=== PATIENT | female | born 1990 | race Caucasian/White ===

== ENCOUNTER 2017-09-13 05:20 | Inpatient (IN) | payer OTHER, MEDICAID ==
[2017-09-13] MEDS ORDERED: AMPICILLIN 2 GM/NS (PMX) 100 ML (05:39)
[2017-09-13] MEDS: LACTATED RINGER'S 1,000 ML IV ×2 (05:51→13:35)
[2017-09-13] MEDS: AMPICILLIN 2 GM/NS (PMX) 100 ML IV (05:51)
[2017-09-13] MEDS ORDERED: OXYTOCIN 30 UNITS/LR 500 ML IV ×3 (06:00→07:30)
[2017-09-13] MEDS ORDERED: LIDOCAINE 1% (MPF) 30 ML INJ INJ (06:00)
[2017-09-13] MEDS ORDERED: IBUPROFEN 600 MG TAB PO (06:00)
[2017-09-13] MEDS ORDERED: BUTORPHANOL 2 MG INJ IV (06:00)
[2017-09-13] MEDS ORDERED: MISOPROSTOL 200 MCG TAB PR ×2 (06:00→07:30)
[2017-09-13] MEDS ORDERED: CARBOPROST 250 MCG INJ IM ×2 (06:00→07:30)
[2017-09-13] MEDS ORDERED: METHYLERGONOVINE 0.2 MG INJ IM ×2 (06:00→07:30)
[2017-09-13 06:09] LABS: ADD MAN DIFF? NO
[2017-09-13 06:16] LABS: BASOPHILS % 0.2 % (0.0-2.0); EOSINOPHILS % 0.1 % (0.0-7.0); HEMATOCRIT 36.6 % (37.0-47.0); HEMOGLOBIN 12.5 g/dl (12.0-16.0); LYMPHOCYTES # 2.9 10^3/ul (0.8-2.9); LYMPHOCYTES % 35.3 % (15.0-51.0); MEAN CORPUSCULAR HEMOGLOBIN 30.1 pg (29.0-33.0); MEAN CORPUSCULAR HGB CONC 34.2 g/dl (32.0-37.0); MEAN CORPUSCULAR VOLUME 88.2 fl (82.0-101.0); MONOCYTE # 0.6 10^3/ul (0.3-0.9); NEUTROPHIL # 4.7 10^3/ul (1.6-7.5); NEUTROPHILS % 56.9 % (39.0-77.0); PLATELET COUNT 184 10^3/UL (140-415); RED BLOOD COUNT 4.15 10^6/ul (4.20-5.40); RED CELL DISTRIBUTION WIDTH 13.1 % (11.5-14.5)
[2017-09-13 06:16] LABS: WHITE BLOOD COUNT 8.3 10^3/ul (4.8-10.8)
[2017-09-13] MEDS: OXYTOCIN 30 UNITS/LR 500 ML IV ×3 (06:32→10:49)
[2017-09-13 06:33] LABS: INR 0.89; PROTIME 12.1 Sec (11.9-14.9); PT RATIO 0.9
[2017-09-13 06:34] LABS: PARTIAL THROMBOPLASTIN TIME 30.3 Sec (25.0-35.0)
[2017-09-13 07:10] LABS: HEPATITIS B SURFACE ANTIGEN NEGATIVE (NEGATIVE)
[2017-09-13] MEDS ORDERED: WITCH HAZEL/GLYCERIN PAD PR (07:30)
[2017-09-13] MEDS ORDERED: LANOLIN 7 GM TUBE TOP (07:30)
[2017-09-13] MEDS ORDERED: DIBUCAINE 1% 30 GM OINT PR (07:30)
[2017-09-13] MEDS: IBUPROFEN 600 MG TAB PO ×4 (07:30→23:43)
[2017-09-13] MEDS ORDERED: HYDROCODONE/APAP (5/325) TAB PO (07:30)
[2017-09-13] MEDS ORDERED: OXYCODONE/ASPIRIN (4.88/325) TAB PO ×2 (07:30)
[2017-09-13] MEDS ORDERED: ONDANSETRON 4 MG INJ IV (07:30)
[2017-09-13] MEDS ORDERED: ACETAMINOPHEN 325 MG TAB PO (07:30)
[2017-09-13] MEDS ORDERED: BENZOCAINE 20% 56 ML SPRAY TOP (07:30)
[2017-09-13] MEDS: HYDROCODONE/APAP (5/325) TAB PO (07:54)
[2017-09-13] MEDS: AMPICILLIN 1 GM/NS (PMX) 50 ML IV ×2 (10:00→14:00)
[2017-09-13] MEDS: SENNA/DOCUSATE NA (8.6MG/50MG) TAB PO ×2 (10:49→23:43)
[2017-09-13 15:04] LABS: RAPID PLASMA REAGIN NONREACTIVE (NR)
[2017-09-14] MEDS: LACTATED RINGER'S 1,000 ML IV ×2 (00:49→06:36)
[2017-09-14] MEDS: IBUPROFEN 600 MG TAB PO ×4 (06:05→23:41)
[2017-09-14] MEDS: SENNA/DOCUSATE NA (8.6MG/50MG) TAB PO ×2 (12:01→21:00)
[2017-09-14 12:08] LABS: ADD MAN DIFF? NO
[2017-09-14 12:17] LABS: BASOPHILS % 0.3 % (0.0-2.0); EOSINOPHILS % 0.3 % (0.0-7.0); HEMATOCRIT 35.6 % (37.0-47.0); HEMOGLOBIN 11.8 g/dl (12.0-16.0); LYMPHOCYTES # 2.8 10^3/ul (0.8-2.9); LYMPHOCYTES % 29.1 % (15.0-51.0); MEAN CORPUSCULAR HEMOGLOBIN 30.3 pg (29.0-33.0); MEAN CORPUSCULAR HGB CONC 33.1 g/dl (32.0-37.0); MEAN CORPUSCULAR VOLUME 91.5 fl (82.0-101.0); MONOCYTE # 0.5 10^3/ul (0.3-0.9); MONOCYTES % 5.3 % (0.0-11.0); NEUTROPHIL # 6.2 10^3/ul (1.6-7.5); NEUTROPHILS % 64.4 % (39.0-77.0); PLATELET COUNT 190 10^3/UL (140-415); RED BLOOD COUNT 3.89 10^6/ul (4.20-5.40); RED CELL DISTRIBUTION WIDTH 13.2 % (11.5-14.5)
[2017-09-14 12:17] LABS: WHITE BLOOD COUNT 9.6 10^3/ul (4.8-10.8)
[2017-09-15] MEDS: IBUPROFEN 600 MG TAB PO ×2 (05:42→12:05)
[2017-09-15] MEDS: SENNA/DOCUSATE NA (8.6MG/50MG) TAB PO (08:55)
[2017-09-15] MEDS ORDERED: MEASLES,MUMPS,RUBELLA VACCINE INJ SC* (09:00)
== END 2017-09-15 16:30 | disposition home or self-care (01) | DRG 775 ==
LOC: OBT 05:20 → L-D 05:25 → PP1 07:35
PROVIDERS: Obstetrics & Gynecology
PROC: 10E0XZZ Delivery of Products of Conception, External Approach (ICD-10-PCS; principal; 2017-09-13)
DX: O80 Encounter for full-term uncomplicated delivery (principal); Z3A.37 37 weeks gestation of pregnancy; Z37.0 Single live birth
CPT/HCPCS: 82962; 85025; 85610; 85730; 86592; 86850; 86900; 86901; 87340